=== PATIENT | female | born 1960 | race Caucasian/White ===

== ENCOUNTER → 2017-03-04 | Outpatient (CLI) | payer BC ==
[2017-03-04 19:04] LABS: Non-African American GFR(MDRD) >60 (>60 ml/min/1.73 sqM)
--- NOTE | 2017-03-04 23:06 | MR ---
EXAMINATION TYPE: MR brain wo/w con DATE OF EXAM: 03/04/2017 COMPARISON: Prior MRI brain January 30, 2016. HISTORY: MS follow up TECHNIQUE: Multiplanar, multisequence images of the brain and brainstem is performed without and with IV contras t, utilizing 20 mL intravenous MultiHance gadolinium contrast is administered intravenously. Demyeli nating disease protocol with additional Sagittal Flair sequence performed. FINDINGS: T2 Lesions Present : Yes Approximate Number of Lesions: Approximately 40-50 scattered lesions redemonstrated Locations Identified : Predominantly deep and periventricular lesions Size of Reference Lesion(s): 1. 0.7 cm x 0.4 cm x 0.6 cm on axial image 21 and sagittal image 11 left posterior frontal deep whit e matter lesion stable Enhancing Lesion(s) Present: No T1 Hypointense Lesion(s) Present: Yes Change from Prior: Stable Diffusion weighted images demonstrate no evidence of a recent infarct or other diffusion abnormality. There is no worrisome extra-axial fluid collection. The ventricular system and cisternal spaces ar e normal in size and appearance. The brain volume is age appropriate. Midline structures demonstrate normal morphology. The craniocervical junction appears within normal limits. Post contrast images demonstrate no abnormal enhancement. The dural venous sinuses appear pa tent. A few scattered mucous retention cysts or polyps in bilateral maxillary sinuses are redemonstra josefina inferiorly otherwise paranasal sinuses are clear. Globes are intact bilaterally. IMPRESSION: Moderate nonspecific white matter changes redemonstrated. No new or enhancing lesions are seen. No significant change from prior.
== END | disposition home or self-care (01) ==
LOC: RADMRIMAIN 18:24
PROVIDERS: ATTEND Psychiatry & Neurology Neurology
DX: G35 Multiple sclerosis (principal)
CPT/HCPCS: 82565; 70553; A9577

== ENCOUNTER → 2019-06-02 | Outpatient (CLI) | payer BC ==
--- NOTE | 2019-06-03 08:23 | MR ---
EXAMINATION TYPE: MR brain wo/w con DATE OF EXAM: 06/02/2019 COMPARISON: Prior MRI brain March 04, 2017. HISTORY: MS, follow-up for abnormal MRI. TECHNIQUE: Multiplanar, multisequence images of the brain and brainstem is performed without and with IV contras t, utilizing 10 mL intravenous Gadavist gadolinium contrast is administered intravenously. Demyelina ting disease protocol with additional Sagittal Flair sequence performed. FINDINGS: T2 Lesions Present : Yes Approximate Number of Lesions: Approximately 50 scattered Locations Identified : Scattered lesions but there is most prominent periventricular and deep white m atter involvement. Size of Reference Lesion(s): 0.6 x 0.4 x 0.6 cm axial image 21 and sagittal image 15 posterior left frontal periventricular lesion stable. Enhancing Lesion(s) Present: No T1 Hypointense Lesion(s) Present: Yes Change from Prior: Stable Diffusion weighted images demonstrate no evidence of a recent infarct or other diffusion abnormality. There is no worrisome extra-axial fluid collection. There is mild ventricular and sulcal prominence consistent with mild diffuse age-related cerebral atrophy. Midline structures demonstrate normal morphology. The craniocervical junction appears within normal limits. Post contrast images demonstrate no abnormal enhancement. The dural venous sinuses appear p atent. The visualized sinuses are clear and the globes are intact. IMPRESSION: Stable moderate nonspecific white matter changes may be a combination of known multiple s clerosis and/or product of chronic small vessel ischemic change. No definitive new or enhancing lesio ns are seen. No significant change from most recent prior MRI.
== END | disposition home or self-care (01) ==
LOC: RADMRIMAIN 17:00
PROVIDERS: ATTEND Psychiatry & Neurology Neurology
DX: R90.82 White matter disease, unspecified (principal); G35 Multiple sclerosis
CPT/HCPCS: 70553; A9585

== ENCOUNTER → 2022-05-29 | Outpatient (CLI) | payer BC ==
--- NOTE | 2022-05-30 06:42 | MR ---
EXAMINATION TYPE: MR brain wo/w con DATE OF EXAM: 05/29/2022 COMPARISON: Prior MRI brain May 23, 2019 HISTORY: MS, tingling and itchy hands. TECHNIQUE: Multiplanar, multisequence images of the brain and brainstem is performed without and with IV contras t, utilizing 10 mL intravenous Gadavist gadolinium contrast is administered intravenously. Demyelina ting disease protocol with additional Sagittal Flair sequence performed. FINDINGS: T2 Lesions Present : Yes Approximate Number of Lesions: Approximately 40 to 50 scattered Locations Identified : Scattered lesions but most prominent involvement is at periventricular level. Size of Reference Lesion(s): 6 x 6 x 7 mm lesion posterior left frontal lobe axial image 23 and sagittal image 112 this more promi nent or larger from prior MRI Enhancing Lesion(s) Present: No T1 Hypointense Lesion(s) Present: Yes Change from Prior: Number of lesions stable. Some lesions larger in size. Diffusion weighted images demonstrate no evidence of a recent infarct or other diffusion abnormality. There is no worrisome extra-axial fluid collection. There is mild ventricular and sulcal prominence consistent with mild diffuse age-related cerebral atrophy. Midline structures redemonstrate normal morphology. The craniocervical junction appears within prashanth l limits. Post contrast images demonstrate no abnormal enhancement. The dural venous sinuses appear patent. The visualized sinuses are clear and the globes are intact. IMPRESSION: Moderate nonspecific white matter changes may be a combination of known multiple sclerosi s and/or product of chronic small vessel ischemic change. No definitive new or enhancing lesions are seen. Some lesions noted have increased in size from most recent MRI 2019 suggesting interval progres jadon of known multiple sclerosis.
== END | disposition home or self-care (01) ==
LOC: RADMRIMAIN 18:23
PROVIDERS: ATTEND Psychiatry & Neurology Neurology
DX: G35 Multiple sclerosis (principal)
CPT/HCPCS: 70553; A9585

== ENCOUNTER → 2023-09-24 | Outpatient (CLI) | payer BC ==
[2023-09-24 18:31] LABS: BUN/Creat Ratio 21.22 Ratio (12.00-20.00); Blood Urea Nitrogen 19.1 mg/dL (9.0-27.0); Carbon Dioxide 27.7 mmol/L (21.6-31.8); Chloride 100 mmol/L (96-109); Glucose 90 mg/dL (70-110); Potassium 3.9 mmol/L (3.5-5.5); Sodium 140 mmol/L (135-145)
== END | disposition home or self-care (01) ==
LOC: LABWHC1 13:25
PROVIDERS: ATTEND Internal Medicine Interventional Cardiology
DX: I10 Essential (primary) hypertension (principal)
CPT/HCPCS: 36415; 80048

== ENCOUNTER → 2024-08-25 | Outpatient (CLI) | payer MEDICARE, BC ==
--- NOTE | 2024-08-30 10:53 | MM ---
Reason for Exam: Screening (asymptomatic). Last mammogram was performed 14 year(s) and 2 month(s) ago. Patient History: Menarche at age 14. First Full-Term at age 24. Left ovary removed at age 50. Right ovary removed at age 50. Hysterectomy at age 50. Postmenopausal. Risk Values: Kemi 5 year model risk: 1.7%. NCI Lifetime model risk: 6.3%. Prior Study Comparison: 06/25/2006 Bilateral Screening Mammogram, [facility]. 06/06/2009 Bilateral Screening Mammogram, [facility]. 06/27/2010 Bilateral Screening Mammogram, [facility]. Tissue Density: There are scattered areas of fibroglandular density. Findings: Analyzed By CAD. There is no suspicious group of microcalcifications or new suspicious mass in either breast. Overall Assessment: Negative, BI-RAD 1 Management: Screening Mammogram of both breasts in 1 year. . Patient should continue monthly self-breast exams. A clinical breast exam by your physician is recommended on an annual basis. This exam should not preclude additional follow-up of suspicious palpable abnormalities. Note on Kemi scores and lifetime risk: 1. A Kemi score greater than 3% is considered moderate risk. If this is the case, consider specialist referral to assess eligibility for a risk reducing agent. 2. If overall lifetime risk for the development of breast cancer is 20% or higher, the patient may qualify for future screening with alternating mammogram and breast MRI. [facility], , 08/30/2024 10:49 AM. Electronically signed and approved by: Wallace Restrepo M.D. Radiologis
== END | disposition home or self-care (01) ==
LOC: RADMAMWWP 07:34
PROVIDERS: ATTEND Family Medicine
DX: Z12.31 Encounter for screening mammogram for malignant neoplasm of breast (principal); R92.323 Mammographic fibroglandular density, bilateral breasts; Z78.0 Asymptomatic menopausal state; Z90.722 Acquired absence of ovaries, bilateral
CPT/HCPCS: 77063; 77067